=== PATIENT | female | born 1940 | race Caucasian/White ===

== ENCOUNTER 2017-06-07 10:36 | Day surgery (SDC) | payer OTHER, MEDICARE, SELFPAY ==
[2017-06-07] VITALS (7 sets, daily range): BP systolic 101–134; BP diastolic 59–82; PULSE 84–120; RESP 18–20; TEMP 37.1–37.3; O2SAT 90–99
--- NOTE | 2017-06-07 11:20 | HMH.ANESCL ---
[facility] Anesthesia Checklist - Patient Identification Patient Identification: Arm Band - Structural Data Admitted From: Home Planned Operative Procedure/s: colonoscopy Consent for Planned Operative Procedure(s) Verified: Yes Verified Documents: Surgical Consent - NPO Status Verified Time NPO: 00:00 - Airway Assessment C-Spine Mobility Assessed: Yes TMJ Mobility Assessed: Yes Dentition: Good Dentition - Neurological Assessment Level of Consciousness: Awake, Alert - Anesthesia Plan Anesthesia Risk discussed: Yes Anesthesia Plan: Verified ASA Class: III Anesthesia Type: MAC [facility] Anesthesia HX I have reviewed the patient's past medical history: Yes Medical History: Reports:: Aneurysm (THORACIC,ABDOMINAL,RENAL), Hypertension Denies:: Diabetes Mellitus Type 1, Diabetes Mellitus Type 2, Seizures Other Surgeries: No: Pacemaker
--- NOTE | 2017-06-07 11:52 | SUR.OPER ---
ERBE CAUTERY 200, COAG 25. GROUNDED TO RIGHT FLANK. SKIN INTACT UPON REMOVAL.
--- NOTE | 2017-06-07 11:56 | HMH.SCOPE ---
- Procedure: Date: 06/07/17 Patient Date of :: 1940 Procedure Performed:: Colonoscopy with cold snare and hot snare polypectomy Equipment: Olympus 180 variable stiffness pediatric colonoscope Indications:: Mrs. Hinds is a 77-year-old female who is here for initial screening colonoscopy. She does have intermittent functional diarrhea when she goes out side the home to eat. She does have some dyspepsia and reflux with a acid stomach . She reports no abdominal pain, weight loss, change in her bowel habits or rectal bleeding. She reports no family history of colon cancer. Performing Provider:: Charles Oliver MD Referring Provider:: Adeola Morocho M.D. Sedation:: MAC sedation Procedure:: Prior to the procedure, a history and physical exam was performed, and patient's medications and allergies were reviewed. The risks, benefits and alternatives of the sedation and procedure were discussed with the patient. All questions were answered and informed consent was obtained. The patient was brought to the procedure room. Patient identification and proposed procedure were verified by the physician and the nurse. The patient was placed in a left lateral decubitus position and the scope was passed under direct vision. Throughout the procedure, the patient's blood pressure, pulse, and oxygen saturations were monitored continuously. The colonoscopy was accomplished without difficulty. The patient tolerated the procedure well. Findings:: On digital rectal examination there was normal rectal tone. There were no external hemorrhoids. The colonoscope was introduced through the anal canal to the rectum and advanced to the cecum. The ileocecal valve and appendiceal orifice were identified. The scope was advanced a short distance into the ileum which appeared grossly normal. The scope was then withdrawn into the colon. There were 4 colon polyps identified in the ascending ?1, sigmoid ?1 and rectum ?2. These ranged in size from 5-9 mm and were all removed via cold snare polypectomy. There were scattered diverticuli throughout the descending and sigmoid colon (LEFT colon). The rectum itself was normal. Upon retroflexion within the rectum there were grade 1 internal hemorrhoids. Impression: 1. Colonic polyps ?4 2. Extensive left-sided diverticulosis 3. Grade 1 internal hemorrhoids Recommendations:: I will follow up the polyp pathology and recommend repeat colonoscopy again in 3-5 years based upon the polyp histology. I would encourage fiber supplementation on a long-term daily maintenance basis. Complications:: None Estimated blood obtained (mL): 0
--- NOTE | 2017-06-07 12:06 | P.PCN_ITS ---
- Procedure: Date: 06/07/17 Patient Date of :: 1940 Procedure Performed:: Colonoscopy with cold snare and hot snare polypectomy Equipment: Olympus 180 variable stiffness pediatric colonoscope Indications:: Mrs. Hinds is a 77-year-old female who is here for initial screening colonoscopy. She does have intermittent functional diarrhea when she goes out side the home to eat. She does have some dyspepsia and reflux with a acid stomach . She reports no abdominal pain, weight loss, change in her bowel habits or rectal bleeding. She reports no family history of colon cancer. Performing Provider:: Charles Oliver MD Referring Provider:: Adeola Morocho M.D. Sedation:: MAC sedation Procedure:: Prior to the procedure, a history and physical exam was performed, and patient' s medications and allergies were reviewed. The risks, benefits and alternatives of the sedation and procedure were discussed with the patient. All questions were answered and informed consent was obtained. The patient was brought to the procedure room. Patient identification and proposed procedure were verified by the physician and the nurse. The patient was placed in a left lateral decubitus position and the scope was passed under direct vision. Throughout the procedure, the patient's blood pressure, pulse, and oxygen saturations were monitored continuously. The colonoscopy was accomplished without difficulty. The patient tolerated the procedure well. Findings:: On digital rectal examination there was normal rectal tone. There were no external hemorrhoids. The colonoscope was introduced through the anal canal to the rectum and advanced to the cecum. The ileocecal valve and appendiceal orifice were identified. The scope was advanced a short distance into the ileum which appeared grossly normal. The scope was then withdrawn into the colon. There were 4 colon polyps identified in the ascending ?1, sigmoid ?1 and rectum ?2. These ranged in size from 5-9 mm and were all removed via cold snare polypectomy. There were scattered diverticuli throughout the descending and sigmoid colon (LEFT colon). The rectum itself was normal. Upon retroflexion within the rectum there were grade 1 internal hemorrhoids. Impression: 1. Colonic polyps ?4 2. Extensive left-sided diverticulosis 3. Grade 1 internal hemorrhoids Recommendations:: I will follow up the polyp pathology and recommend repeat colonoscopy again in 3 -5 years based upon the polyp histology. I would encourage fiber supplementation on a long-term daily maintenance basis. Complications:: None Estimated blood obtained (mL): 0
== END 2017-06-07 13:00 | disposition home or self-care (01) ==
LOC: OUTP 10:40
PROVIDERS: Family Provider Family Medicine; PCP Family Medicine; Visit Provider Internal Medicine Gastroenterology
PROC: 0DJD8ZZ Inspection of Lower Intestinal Tract, Via Natural or Artificial Opening Endoscopic (ICD-10-PCS; CPT 45378; principal; 2017-06-07 12:00)
DX: Z12.11 Encounter for screening for malignant neoplasm of colon (principal); K59.1 Functional diarrhea; K63.5 Polyp of colon; K57.30 Diverticulosis of large intestine without perforation or abscess without bleeding; K64.0 First degree hemorrhoids
CPT/HCPCS: 45380; 99152

== ENCOUNTER → 2018-07-05 14:46 | Outpatient (CLI) | payer OTHER, SELFPAY ==
--- NOTE | 2018-07-05 14:51 | XR_ITS ---
XR chest 2V HISTORY: ITS.REASON: COPD ACUTE EXACERBATION ORDERING PHYSICIAN: Stephanie Morocho MD PATIENT AGE: 78 years COMPARISON: 11/06/2014 FINDINGS: There is normal heart size. The aortic knob is prominent consistent with ectasia/tortuosity. There is COPD. No lobar consolidation or collapse. No acute bony findings. IMPRESSION: COPD with increasing prominence of the aortic knob. Cannot exclude aneurysmal dilatation. CTA of the chest may be of further value.
== END ==
PROVIDERS: PCP Family Medicine; Visit Provider Family Medicine
DX: J44.1 Chronic obstructive pulmonary disease with (acute) exacerbation (principal)
CPT/HCPCS: 71046

== ENCOUNTER → 2018-09-29 13:10 | Outpatient (CLI) | payer OTHER, MEDICARE, SELFPAY ==
--- NOTE | 2018-09-29 13:16 | CT_ITS ---
CT chest wo con HISTORY: Shortness of air, smoker, thoracic aortic aneurysm ITS.REASON: SOB,H/O NICOTINE DEPENDENCE ORDERING PHYSICIAN: Stephanie Morocho MD PATIENT AGE: 78 years COMPARISON: None Technique: Axial images obtained. Sagittal, and coronal reformatted images are also generated and reviewed. All CT scans at the facility use one or more dose reduction, viz: automated exposure control, ma/kV adjustment per patient size (including targeted exams where dose is matched to indication, i.e. head), or iterative reconstruction technique. FINDINGS: There is focal aneurysmal dilatation of the aortic arch measuring up to 5.5 cm in maximum transverse dimension previously measuring 4.5 cm. This measures 5.8 cm cephalad to caudad previously measuring 4.4 cm. The left subclavian artery origin is located within the proximal aspect of the aneurysm. The aneurysm begins just distal to the left carotid artery. No evidence of mediastinal hematoma. There are coronary artery calcifications. There is some minimal thickening of the pericardium anteriorly at 8 mm suggesting small pericardial effusion. The aneurysm extends for a length of approximately 6.5 cm. The proximal descending thoracic aorta is normal in caliber. There is mild dilatation of the lower thoracic aorta at the aortic hiatus measuring up to 4 cm. This is not significantly changed. Cannot adequately entirely for dissection without IV contrast.. No mediastinal or hilar mass. There is normal heart size. There are centrilobular emphysematous changes with scattered areas of scarring in. Bilateral stable small nodular opacities are present less than 6 mm. There is moderate wedging involving the T12 vertebral body with mild kyphosis. This is not significantly changed. IMPRESSION: 1. Aneurysm of the aortic arch which is increased in size as described above measuring up to 5.5 cm x 5.8 previously 4.5 cm x 4.[address] angiogram of the thoracic aorta further evaluation. Stable dilatation of the lower thoracic aorta. 2. Centrilobular emphysema with scattered areas scarring and stable small bilateral nodular opacities
== END ==
PROVIDERS: PCP Family Medicine; Visit Provider Family Medicine
DX: R06.02 Shortness of breath (principal); Z87.891 Personal history of nicotine dependence
CPT/HCPCS: 71250

== ENCOUNTER → 2018-11-08 12:32 | Outpatient (CLI) | payer OTHER, SELFPAY ==
--- NOTE | 2018-11-08 12:35 | FL_ITS ---
FL barium swallow modified: 11/08/2018 12:35 PM CLINICAL HISTORY: Dysphagia ORDERING PHYSICIAN: Flaco May PATIENT AGE: 78 years Comparison: None TECHNIQUE: Patient administered varying consistencies of barium contrast, while viewed in lateral position under real-time fluoroscopy with cine recording. FLUOROSCOPY TIME: 1 minute and 14 seconds The study was performed in conjunction with speech pathologist. Please see that report & recommendations. FINDINGS: Patient was given varying consistencies of barium. No evidence of penetration or aspiration. There is some delayed swallowing with pudding. IMPRESSION: Unremarkable modified barium swallow Please see speech pathologist report and recommendations.
--- NOTE | 2018-11-08 13:48 | HMH.SLMBS2 ---
Speech & Language Evaluation Speech/Language Mod Barium Swallow Start: 11/08/18 13:43 Freq: once Status: Complete Protocol: Document 11/08/18 13:43 LORRI (Rec: 11/08/18 13:47 LORRI [id number]) [facility] [place] Diet Dietary Recommendations Regular,Thin Liquids Treatment/Strategies Treatment Recommendation Compens. Strategy Educat. Strategy/Precaution Recommend Turn Head Left Mod Barium Swallow Impressions Summary and Impressions Oral Phase Impression No Impairment (WFL) Oral Phase Summary Ms. Hinds was given the following consistencies: thins via straw and open cup, pudding, mechanical soft, regular, mixed, and pill with this wash. No oral phase impairment noted. Pharyngeal Phase Impression Minimal Impairment Pharyngeal Phase Summary Flash penetration with thin liquids via straw and open cup . Compensatory strategy of chin tuck attempted with no improvement noted, improvement noted with head turn to left. Speech/Language MBS Assessment/Goals/Plan Assessment Date of Evaluation: 11/08/18 Evaluation Type Initial Certification Assessment/Problems Dysphagia Does Patient Qualify for Service No Qualify/Failure Comment Diet modifications not needed. Compensatory strategy education completed. Further therapy not warranted at this time. Plan Pt/Guardian verbally ack understanding Yes of dx/prognosis/goals G -code Required Yes G-CODES ST Current Status [id number] ST Current Status Modifier CI-At least 1% but less than 20% impaired, limited or restricted ST Goal Status [id number] ST Goal Status Modifier CI-At least 1% but less than 20% impaired, limited or restricted Mod Barium Swallow Setup Exam Setup Radiologist Abrahan Ortega Level of Consciousness Awake,Alert,Appropriate, Follows Commands Position (degrees) 90 Mod Barium Swallow-Lat View Textures Lateral View Food Presentation Thin Liquid via Cup,Thin Liquid via Straw,Ground Food- Regular,Barium Tablet,Regular Food,Pudding,Mixed Oral Phase Labial Closure No Impairment (WFL)
== END ==
PROVIDERS: PCP Family Medicine; Visit Provider Thoracic Surgery (Cardiothoracic Vascular Surgery)
DX: R13.10 Dysphagia, unspecified (principal)
CPT/HCPCS: 70371; 92611

== ENCOUNTER 2019-08-28 20:27 | Observation (INO) ==
[2019-08-28 20:50] LABS: Microscopic, Urine URINE MICROSCOPIC (MICROSCOPIC)
[2019-08-28 20:51] LABS: Appearance,Urine CLEAR (Clear); Bilirubin,Urine Negative (Negative); Blood, Urine 2+ (Negative); Color,Urine YELLOW (Yellow); Glucose,Urine (UA) Negative (Negative); Ketones,Urine Negative (Negative); Leukocyte Esterase,Urine 2+ (Negative); Protein,Urine Negative (Negative); Urobilinogen,Urine 0.2 EU/dl (0.2)
[2019-08-28 20:56] LABS: Bacteria,Urine Trace /lpf
[2019-08-28 21:14] LABS: Basophils # 0.1 K/mm3 (0-0.2); Basophils % 1.1 % (0.1-2.0); Eosinophils # 0.2 K/mm3 (0.0-0.4); Eosinophils % 3.8 % (0.1-12.0); Hematocrit 39.6 % (37.0-47.0); Hemoglobin 12.1 g/dL (12.2-16.2); Lymphocytes # 1.5 K/mm3 (0.7-4.5); Lymphocytes % 27.3 % (10-50); Mean Corpuscular HGB Conc 30.5 g/dL (31.8-35.4); Mean Corpuscular Volume 94.8 fl (81-99); Mean Platelet Volume 7.7 fl (7.4-10.4); Monocytes # 0.4 K/mm3 (0.1-1.0); Neutrophils # 3.3 K/mm3 (1.8-7.8); Neutrophils % 59.8 % (37.0-80.0); Platelet Count 379 K/mm3 (142-424); Red Blood Count 4.18 M/mm3 (4.20-5.40); White Blood Count 5.6 K/mm3 (4.8-10.8)
[2019-08-28 21:23] LABS: Chloride 100 mmol/L (98-107); Sodium 136 mmol/L (136-145)
[2019-08-28 21:25] LABS: Amylase 138 U/L (30-110); Blood Urea Nitrogen 20 mg/dl (7-17)
[2019-08-28 21:26] LABS: Alanine Aminotransferase 9 U/L (12-78); Albumin Level 4.1 g/dl (3.5-5.0); Albumin/Globulin Ratio 1.5 (1.1-1.8); Alkaline Phosphatase 116 U/L (38-126); Aspartate Amino Transferase 20 U/L (14-36); Calcium 9.6 mg/dl (8.4-10.2); Carbon Dioxide 25 mmol/L (22.0-30.0); Globulin 2.8 g/dL (1.3-3.2); Glucose 88 mg/dl (74-100); Total Protein,Serum 6.9 g/dl (6.3-8.2)
[2019-08-28 21:36] LABS: Bilirubin,Total < 0.1 mg/dl (0.2-1.3)
--- NOTE | 2019-08-28 21:58 | Emergency Department Note ---
ED Disposition Clinical Impression: Renal colic on left side, Renal insufficiency, Overweight (BMI 25.0-29.9) Urinary tract infection Qualifiers: Urinary tract infection type: site unspecified Hematuria presence: without hematuria Qualified Code(s): N39.0 - Urinary tract infection, site not specified AAA (abdominal aortic aneurysm) Qualifiers: Presence of rupture: without rupture Qualified Code(s): I71.4 - Abdominal aortic aneurysm, without rupture Thoracic aortic aneurysm Qualifiers: Presence of rupture: without rupture Qualified Code(s): I71.2 - Thoracic aortic aneurysm, without rupture Disposition: Admitted as Observation Condition on Discharge: Good Instructions: DI for Urinary Tract Infection (UTI), DI for Urinary Tract Infection in Children Referrals: Stephanie Morocho MD [Primary Care Provider] - - Critical Care Critical Care Time: No Attestation: On 08/28/19, the high probability of a clinically significant, sudden or life threatening deterioration of the following system(s) required my full and direct attention, intervention and personal management. The time I documented below is in addition to time spent performing reported procedures but includes the following listed in this critical care notation. Medical Decision Making - Medical Records Medical records reviewed: Yes: I reviewed the patient's medical records. - Balbir Inquiry Pt receiving controlled substance: No Vital Signs: 08/28/19 20:49 08/28/19 21:51 Temperature 98.1 F Temperature Source Oral Pulse Rate [Right Brachial] 110 H 74 Respiratory Rate 19 18 Blood Pressure [Right Arm] 157/90 H 100/80 L Blood Pressure Mean [Right Arm] 112 86 Blood Pressure Source [Right Arm] Automatic Cuff Manual Cuff/ Auscultation 02 Sat by Pulse Oximetry 96 96 Oxygen Delivery Method Room Air Room Air - Lab Data Lab results reviewed: Yes: I reviewed the patient's lab results. Lab Results 08/28/19 20:45: Urine Color Yellow, Urine Appearance Clear, Urine pH 6.0, Ur Specific [place] 1.010, Urine Protein Negative, Urine Glucose (UA) Negative, Urine Ketones Negative, Urine Blood 2+, Urine Nitrate Negative, Urine Bilirubin Negative, Urine Urobilinogen 0.2, Ur Leukocyte Esterase 2+ A, Urine RBC 3-5, Urine WBC 10-20, Ur Squamous Epith Cells 3-5, Urine Bacteria Trace 08/28/19 21:00: WBC 5.6, RBC 4.18 L, Hgb 12.1 L, Hct 39.6, MCV 94.8, MCH 28.9, MCHC 30.5 L, RDW 16.0, Plt Count 379, MPV 7.7, Neut % (Auto) 59.8, Lymph % (Auto) 27.3, [place] % (Auto) 8.0, Eos % (Auto) 3.8, Baso % (Auto) 1.1, Neut # (Auto) 3.3, Lymph # (Auto) 1.5, [place] # (Auto) 0.4, Eos # (Auto) 0.2, Baso # (Auto) 0.1 08/28/19 21:00: Sodium 136, Potassium 5.0, Chloride 100, Carbon Dioxide 25, Anion Gap 16.0 H, BUN 20 H, Creatinine 1.90 H, Estimated Creat Clear 30, Estimated GFR 26 L, Est GFR ( Amer) 31 L, Glucose 88, Calcium 9.6, Total Bilirubin < 0.1 L, AST 20, ALT 9 L, Alkaline Phosphatase 116, Total Protein 6.9, Albumin 4.1, Globulin 2.8, Albumin/Globulin Ratio 1.5, Amylase 138 H, Lipase 184 Result diagrams: 08/28/19 21:00 08/28/19 21:00 Orders (Tests/Meds): ED MEDICATIONS Generic Name Dose Route Start Last Admin Trade Name Freq PRN Reason Stop Dose Admin Sodium Chloride 1,000 mls @ 999 mls/hr 08/28/19 20:45 08/28/19 21:25 Sod Chlor 0.9% 1000ml Bag IV 08/28/19 21:45 999 mls/hr .Q1H1M CLAUS Administration Discontinued Medications Generic Name Dose Route Start Last Admin Trade Name Freq PRN Reason Stop Dose Admin Ketorolac Tromethamine 30 mg 08/28/19 21:24 08/28/19 21:25 Toradol 30mg/Ml Vial IV 08/28/19 21:25 30 mg ONCE ONE Administration ORDERS Category Date Time Status CT abdomen pelvis wo con Stat Cat Scan 08/28/19 20:38 Taken Urine Culture Stat Micro 08/28/19 20:45 Received - CT Data CT Scan: Abdomen, Pelvis Time Received: 22:[address] Reviewed: Yes: I have viewed the radiologist's interpretation Preliminary Findings: Abnormal (see report ) - Physician Consults Physician Consulted: claire Reason -: Admission Additional Consult: [place] Reason -: Pt condition Female Urogenital HPI - General Chief complaint: Urogenital-Female Stated complaint: Possible Bladdler or kidneys possible stones Time Seen by Provider: 08/28/19 21:00 Mode of Arrival: Family Vehicle Source of Information: Patient, Medical Record Limitations: No Limitations Description of Symptoms (Recalled from ER Triage Doc. by RN): pt thought she recentl had a uti and called had her pcp put her on an antibiotic for it. after several days it worsened and now although she denies dysuria she describes a "pulsating" in her clitoris.Assessment reveals no back or abd pain or discomfort, no obvious deformities to vaginal area. urinary frequency present - History of Present Illness HPI Narrative: pt with vaginal pain with urinary sx - she was placed on abx last week but has ongoing sx - no fever or vomiting MD Complaint: "UTI" Onset (ago): day(s) Severity: moderate Associated symptoms: denies other symptoms - Related Data Home Medications Medication Instructions Recorded Confirmed Fluticasone/Salmeterol [Advair 2 each IH BID 06/01/17 08/28/19 500/50mcg diskus] Lovastatin 20 mg PO DAILY 06/01/17 08/28/19 lisinopriL [Lisinopril 2.5mg Tab] 2.5 mg PO DAILY 06/01/17 08/28/19 Esomeprazole Magnesium [Nexium 20 mg PO DAILY 06/04/17 08/28/19 24Hr] allopurinoL [Allopurinol 300mg 300 mg PO DAILY 06/07/17 08/28/19 tablet] Aspirin [Aspir 81] 81 mg PO DAILY 10/18/18 08/28/19 Fluoxetine HCl [Prozac] 20 mg PO DAILY 10/18/18 08/28/19 Sulfamethoxazole/Trimethoprim 1 each PO BID 08/28/19 08/28/19 [Bactrim DS tablet] nitrofurantoin macrocrystaL 1 tab PO BID 08/28/19 08/28/19 [Macrodantin 100mg capsule] Allergies Allergy/AdvReac Type Severity Reaction Status Date / Time No Known Drug Allergies Allergy Unknown Verified 10/18/18 07:07 [facility] History - Hepatitis A Screen Drug use history?: No High risk sexual behaviors?: No History of sexually transmitted infection?: No Currently employed?: No Childcare worker?: No Do you have indoor plumbing?: Yes Do you have electricity?: Yes Attestation statement:: This patient has been screened for Hepatitis A risk factors. I have reviewed the patient's past medical history: Yes Medical History: Reports:: Aneurysm, Hypertension, Lung Disease Denies:: Cancer, Diabetes Mellitus Type 1, Diabetes Mellitus Type 2, Internal Pacemaker, MRSA, Seizures Laterality Cases: Right: Carotid Endarterectomy, Bilateral: Tonsillectomy Other Surgeries: Yes: Cardiac Catheterization (CAROTID ARTERY 2001). No: Pacemaker Amputation: No - Social History Smoking Status: Former smoker Alcohol Intake: never Alcohol Intake Frequency:: holidays/special occasions only Substance Use Type: marijuana (1987; one hit) Occupational Status: retired Housing: house ROS Obtained: Yes All systems reviewed & no additional complaints - Constitutional Constitutional: Denies fever(s) - Eyes Eyes: Denies change in vision - ENT Ears, Nose, Mouth, and Throat: Denies sore throat - Cardiovascular Cardiovascular: Denies chest pain - Respiratory Respiratory: No cough - Gastrointestinal Gastrointestingal: Denies: dysphagia, vomiting - Genitourinary Female Genitourinary: Denies abnormal vaginal bleeding, Denies hematuria, Reports other (ext vag pain) - Musculoskeletal Musculoskeletal: Denies joint swelling - Integumentary/Breasts Skin/Breast: Denies rash - Neurologic Neurologic: Denies focal weakness, Denies seizure-like activity Physical Exam - General General appearance: alert - Head Head exam: normocephalic - Eye Eye exam: Present: PERRL, EOMI - ENT ENT exam: Present: mucous membranes dry - Neck Neck exam: Present: trachea midline - Respiratory Respiratory exam: Absent: respiratory distress - Cardiovascular Cardiovascular exam: Present: regular rate, systolic murmur - Abdominal Exam Abdominal exam: Present: soft Abdominal tenderness: Present: suprapubic, moderate - External exam: Present: normal external exam, other (skin lesions reported as chronic - prob seborrheic keratosis) - Extremities Exam Extremities exam: Present: full ROM - Neurological Exam Neurological exam: Present: alert, CN II-XII intact - Psychiatric Psychiatric exam: Present: anxious - Skin Skin exam: Present: intact
[2019-08-29 06:59] LABS: Anion Gap 10.1 mEq/L (5-15)
[2019-08-29 07:05] LABS: Calcium 8.9 mg/dl (8.4-10.2)
[2019-08-29 07:14] LABS: Basophils % 0.9 % (0.1-2.0); Eosinophils # 0.1 K/mm3 (0.0-0.4); Hematocrit 34.1 % (37.0-47.0); Lymphocytes # 1.2 K/mm3 (0.7-4.5); Lymphocytes % 27.4 % (10-50); Mean Corpuscular HGB Conc 30.4 g/dL (31.8-35.4); Mean Corpuscular Volume 94.2 fl (81-99); Mean Platelet Volume 7.5 fl (7.4-10.4); Monocytes # 0.3 K/mm3 (0.1-1.0); Monocytes % 7.1 % (1.7-9.3); Neutrophils # 2.8 K/mm3 (1.8-7.8); Neutrophils % 61.6 % (37.0-80.0); Platelet Count 313 K/mm3 (142-424); Red Blood Count 3.62 M/mm3 (4.20-5.40); Red Cell Distribution Width 15.7 % (11.5-17.5); White Blood Count 4.5 K/mm3 (4.8-10.8)
[2019-08-29 07:22] LABS: Hemoglobin 10.4 g/dL (12.2-16.2)
--- NOTE | 2019-08-29 08:01 | History & Physical Report ---
*Admission Date: 08/28/19 *Chief complaint: Suprapubic/genital pain *History of present illness: 79-year-old female presented to the emergency department after a near weeklong history of suprapubic pain. Patient admits she originally thought she had a urinary tract infection after she developed some suprapubic pressure and throbbing nearly a week ago. She had contacted the office and was treated empirically for a urinary tract infection. After completing a course of antibiotics and her pain was unchanged she decided to seek treatment at the emergency department. Patient does state that the discomfort she has is somewhat reminiscent of a prior kidney stone. Patient was evaluated in the emergency department and found to have a 3 x 6 mm stone at the left UVJ. Patient was admitted for urologic evaluation. This morning patient reports that she continues to have pressure in the suprapubic region that is radiating down towards her genitals. A Mckinley catheter was inserted overnight as patient felt like she just could not pass urine. Insertion of the Mckinley catheter did produce 350 mL's of dark yellow urine. Patient however denies improvement in pain. She continues to report extreme pressure and throbbing in the suprapubic and vaginal area. She denies fevers or chills. She does not believe she has had any hematuria [facility] History I have reviewed the patient's past medical history: Yes Medical History: Reports:: Aneurysm, Coronary Artery Disease, Hyperlipidemia, Hypertension, Lung Disease Denies:: Cancer, Diabetes Mellitus Type 1, Diabetes Mellitus Type 2, Internal Pacemaker, MRSA, Seizures *Have you ever received a pneumonia vaccine?: Yes *Have you received a flu vaccine this season?: Yes Other Medical History: Reports: Arthritis, Cataracts, Hoarseness (vocal cord removed 2018) Laterality Cases: Right: Carotid Endarterectomy, Bilateral: Cataract, Tonsillectomy Other Surgeries: Yes: Appendectomy, Cardiac Catheterization, Colonoscopy (2018), Hysterectomy-Partial. No: Pacemaker Amputation: No Fractures: No - *Social History Educational Level: Attended College Smoking Status: Former smoker Tobacco Type: cigarettes # Packs/Day (cigarettes): 1 #Yrs smoked (if former smoker): 50 Smoking End Date: 2013 Alcohol Intake: current Alcohol Intake Frequency:: a few times a month Substance Use Type: marijuana (1987; one hit) *Occupational Status:: retired Housing: apartment *Travel in the last 8 weeks: None Family Hx:: Cancer, Coronary Artery Disease, Diabetes, Heart Attack, Hyperlipidemia, Hypertension, Alcoholism Review of Systems - Constitutional Denies body ache(s), Denies chills, Denies fever(s) - ENT Denies abnormal hearing - *Cardiovascular Denies chest pain, Denies chest pain at rest, Denies chest pain with activity - *Respiratory Reports cough, Denies change in phlegm color, Denies chest congestion - *Genitourinary Reports difficulty urinating, Denies blood in urine - *Neurologic Denies localized weakness, Denies seizure-like activity Meds Home Medications Medication Instructions Recorded Confirmed Type Fluticasone/Salmeterol [Advair 2 each IH BID PRN 06/01/17 08/28/19 History 500/50mcg diskus] Lovastatin 20 mg PO DAILY 06/01/17 08/28/19 History lisinopriL [Lisinopril 2.5mg Tab] 2.5 mg PO DAILY 06/01/17 08/28/19 History Esomeprazole Magnesium [Nexium 20 mg PO DAILY 06/04/17 08/28/19 History 24Hr] allopurinoL [Allopurinol 300mg 300 mg PO DAILY 06/07/17 08/28/19 History tablet] Aspirin [Aspir 81] 81 mg PO DIRECTED 10/18/18 08/29/19 History Allergies Allergy/AdvReac Type Severity Reaction Status Date / Time No Known Drug Allergies Allergy Unknown Verified 10/18/18 07:07 Exam Vital signs and Labs for Last 24 Hours: Temp Pulse Resp BP Pulse Ox 97.4 F L 75 18 125/56 L 96 08/29/19 04:00 08/29/19 04:00 08/29/19 04:00 08/29/19 04:00 08/29/19 04:00 Laboratory Results - last 24 hr 08/28/19 20:45: Urine Color Yellow, Urine Appearance Clear, Urine pH 6.0, Ur Specific Stitzer 1.010, Urine Protein Negative, Urine Glucose (UA) Negative, Urine Ketones Negative, Urine Blood 2+, Urine Nitrate Negative, Urine Bilirubin Negative, Urine Urobilinogen 0.2, Ur Leukocyte Esterase 2+ A, Urine RBC 3-5, Urine WBC 10-20, Ur Squamous Epith Cells 3-5, Urine Bacteria Trace 08/28/19 21:00: WBC 5.6, RBC 4.18 L, Hgb 12.1 L, Hct 39.6, MCV 94.8, MCH 28.9, MCHC 30.5 L, RDW 16.0, Plt Count 379, MPV 7.7, Neut % (Auto) 59.8, Lymph % (Auto) 27.3, [place] % (Auto) 8.0, Eos % (Auto) 3.8, Baso % (Auto) 1.1, Neut # (Auto) 3.3, Lymph # (Auto) 1.5, [place] # (Auto) 0.4, Eos # (Auto) 0.2, Baso # (Auto) 0.1 08/28/19 21:00: Sodium 136, Potassium 5.0, Chloride 100, Carbon Dioxide 25, Anion Gap 16.0 H, BUN 20 H, Creatinine 1.90 H, Estimated Creat Clear 30, Estimated GFR 26 L, Est GFR ( Amer) 31 L, Glucose 88, Calcium 9.6, Total Bilirubin < 0.1 L, AST 20, ALT 9 L, Alkaline Phosphatase 116, Total Protein 6.9, Albumin 4.1, Globulin 2.8, Albumin/Globulin Ratio 1.5, Amylase 138 H, Lipase 184 08/28/19 22:21: Lactate 0.9 08/29/19 06:39: WBC 4.5 L, RBC 3.62 L, Hgb 10.4 L D, Hct 34.1 L, MCV 94.2, MCH 28.6, MCHC 30.4 L, RDW 15.7, Plt Count 313, MPV 7.5, Neut % (Auto) 61.6, Lymph % (Auto) 27.4, [place] % (Auto) 7.1, Eos % (Auto) 3.0, Baso % (Auto) 0.9, Neut # (Auto) 2.8, Lymph # (Auto) 1.2, [place] # (Auto) 0.3, Eos # (Auto) 0.1, Baso # (Auto) 0.0 08/29/19 06:39: Sodium 134 L, Potassium 5.1, Chloride 104, Carbon Dioxide 25, Anion Gap 10.1, BUN 19 H, Creatinine 1.90 H, Estimated Creat Clear 30, Estimated GFR 26 L, Est GFR ( Amer) 31 L, Glucose 80, Calcium 8.9 I & O for Last 24 hours: Intake & Output 08/26/19 08/27/19 08/28/19 08/29/19 11:59 11:59 11:59 11:59 Intake Total 1766 / 1766 Output Total 600 / 600 Balance 1166 / 1166 Weight 176 lb 7.998 oz - Constitutional no acute distress - *Routine HEENT Exam Head: Present: normocephalic Eye: Present: EOMI, PERRL ENT: Present: mucous membranes moist - *Routine Neck Exam Present: supple, full ROM. Absent: JVD - *Routine Respiratory Exam Comments: Clear but distant throughout - *Routine Cardiovascular Exam Present: RRR, Normal S1, Normal S2 - *Routine Abdominal Exam Present: soft, normoactive bowel sounds. Absent: tenderness - *Routine Exam External: Present: normal urethra appearance. Absent: erythema, swelling - *Routine Extremities Exam Absent: clubbing, edema - Routine Back/Spine/Pelvis Exam Back/Spine: Absent: CVA tenderness Assessment and Plan (1) Ureterolithiasis Current visit: Yes Status: Acute Category: Medical Code(s): N20.1 - Calculus of ureter 79-year-old female identifies having a left ureterovesical junction stone measuring 3 x 6 mm. KUB has been ordered this morning to assess whether or not stone is still present at the UVJ. If stone is unchanged will contact urology
--- NOTE | 2019-08-29 08:05 | Pharmacy Consult Notes ---
[facility] Pharmacy VTE Monitoring - Patient Demographics Admission date: 08/29/19 Report Date: 08/29/19 Time: 08:05 Allergies/Adverse Reactions: Patient Allergies No Known Drug Allergies Allergy (Unknown, Verified 10/18/18 07:07) Height: 1.63 m Weight: 80.059 kg Patient Problems: Current Active Problems Urinary tract infection (Acute) Renal colic on left side (Acute) AAA (abdominal aortic aneurysm) (Acute) Thoracic aortic aneurysm (Acute) Renal insufficiency (Acute) Overweight (BMI 25.0-29.9) (Acute) - VTE Risk Labs: VTE Related Lab Results Hgb 10.4 g/dL (12.2-16.2) L D 08/29/19 06:39 Hct 34.1 % (37.0-47.0) L 08/29/19 06:39 Plt Count 313 K/mm3 (142-424) 08/29/19 06:39 BUN 19 mg/dl (7-17) H 08/29/19 06:39 Creatinine 1.90 mg/dl (0.52-1.04) H 08/29/19 06:39 Estimated Creat Clear 30 mL/min (50-200) 08/29/19 06:39 Was VTE Risk Assessment Performed: Yes VTE Score: 4 VTE Risk Level: Low Risk Clinical Trial Participant: No - Prophylaxis VTE Prophylaxis Ordered?: Yes Types of VTE Prophylaxis: TEDS Knee High
--- NOTE | 2019-08-30 07:21 | Progress Note ---
Internal Medicine - PN: Subj *Date: 08/30/19 *Time: 07:19 Interval history: Patient states her pain is unchanged. Patient is required routine administration of morphine to control her pain. There is been no indication she has passed her kidney stone. She does admit urine is flowing better. She also reports nausea with an episode of vomiting yesterday evening. Exam Vital signs and Labs for Last 24 Hours: Temp Pulse Resp BP Pulse Ox 97.7 F 85 17 101/66 L 91 L 08/30/19 04:00 08/30/19 04:00 08/29/19 20:00 08/30/19 04:00 08/30/19 04:00 Laboratory Results - last 24 hr 08/29/19 06:39: WBC 4.5 L, RBC 3.62 L, Hgb 10.4 L D, Hct 34.1 L, MCV 94.2, MCH 28.6, MCHC 30.4 L, RDW 15.7, Plt Count 313, MPV 7.5, Neut % (Auto) 61.6, Lymph % (Auto) 27.4, [place] % (Auto) 7.1, Eos % (Auto) 3.0, Baso % (Auto) 0.9, Neut # (Auto) 2.8, Lymph # (Auto) 1.2, [place] # (Auto) 0.3, Eos # (Auto) 0.1, Baso # (Auto) 0.0 I & O for Last 24 hours: Intake & Output 08/27/19 08/28/19 08/29/19 08/30/19 11:59 11:59 11:59 11:59 Intake Total 1766 / 1766 2895 / 2895 Output Total 600 / 600 700 / 700 Balance 1166 / 1166 2195 / 2195 Weight 176 lb 7.998 oz 176 lb 7.998 oz Microbiology Reports for the Last 24 Hours: Microbiology 08/28/19 20:45 Urine,Clean Catch Urine Culture - Preliminary NO GROWTH AFTER 24 HOURS Narrative: Patient appears comfortable. Lungs are distant. Heart has a regular rate and rhythm. Abdomen is soft and nontender. There is no CVA tenderness. Assessment and Plan (1) Ureterolithiasis Current visit: Yes Status: Acute Category: Medical Code(s): N20.1 - Calculus of ureter - Assessment and plan all Dx Assessment and Plan for all problems:: 1. KUB this morning. Likely she will need urologic intervention. Dr. Aguilar is aware. He is anticipating intervening later this morning.
--- NOTE | 2019-08-30 09:04 | Progress Note ---
[facility] Anesthesia Checklist - Patient Identification Patient Identification: Arm Band, Verbal (Name & ) - Structural Data Admitted From: Inpatient Planned Operative Procedure/s: uereteroscopy Consent for Planned Operative Procedure(s) Verified: Yes Verified Documents: History and Physical - NPO Status Verified Time NPO: 00:00 - Additional verifications Patient : No Anesthesia Reactions: No Hx Blood Transfusions: No Blood Transfusion Reaction: No Cephalosporin Allergy: No Previous Colonoscopy: Yes - Cardiovascular Assessment Heart Sounds: S1 & S2 Pulse Strength: Baseline Pulse Rhythm: Regular Peripheral Edema: No - Airway Assessment C-Spine Mobility Assessed: Yes TMJ Mobility Assessed: Yes Dentition: Edentulous - Neurological Assessment Level of Consciousness: Awake, Alert, Appropriate Hx Seizures: No Numbness or tingling in extremities: No - Anesthesia Plan Anesthesia Risk discussed: Yes Anesthesia Plan: Verified ASA Class: III Anesthesia Type: General [facility] History I have reviewed the patient's past medical history: Yes Medical History: Reports:: Aneurysm, Coronary Artery Disease, Hyperlipidemia, Hypertension, Lung Disease Denies:: Cancer, Diabetes Mellitus Type 1, Diabetes Mellitus Type 2, Internal Pacemaker, MRSA, Seizures *Have you ever received a pneumonia vaccine?: Yes *Have you received a flu vaccine this season?: Yes Other Medical History: Reports: Arthritis, Cataracts, Hoarseness (vocal cord removed 2018) Anesthesia experience/problems:: none Laterality Cases: Right: Carotid Endarterectomy, Bilateral: Cataract, Tonsillectomy Other Surgeries: Yes: Appendectomy, Cardiac Catheterization, Colonoscopy (2018), Hysterectomy-Partial. No: Pacemaker Amputation: No Fractures: No - *Social History Educational Level: Attended College Smoking Status: Former smoker Tobacco Type: cigarettes # Packs/Day (cigarettes): 1 #Yrs smoked (if former smoker): 50 Smoking End Date: 2013 Alcohol Intake: current Alcohol Intake Frequency:: a few times a month Substance Use Type: marijuana (1987; one hit) *Occupational Status:: retired Housing: apartment *Travel in the last 8 weeks: None Family Hx:: Cancer, Coronary Artery Disease, Diabetes, Heart Attack, Hyperlipidemia, Hypertension, Alcoholism
--- NOTE | 2019-08-30 10:30 | Progress Note ---
[facility] Anesthesia Record Part I Intake, IV Amount: 800 Estimated blood loss (mL): 0 Urine output (mL): 0 Blood Pressure: 162/76 SaO2: 94 Pulse Rate: 93 Respiratory Rate: 16 Temperature: 97.8 F Patient is:: Drowsy, Stable Stable to PACU at:: 10:20
--- NOTE | 2019-08-30 10:58 | Consult Report ---
*Admission Date: 08/29/19 *Reason for consult:: Left ureteral stone *History of present illness: Patient is a 79-year-old white female with a 1 week history of lower abdominal and vaginal discomfort. She came to emergency room and a CT scan showed a 6 mm distal left ureteral stone without evidence of hydronephrosis. She has been afebrile and her white count is normal. She was admitted for pain issues. She gives a distant history of kidney stones 20 years ago. She denies any flank pain, hematuria or nausea. Her CT scan and medical record were reviewed preoperatively this morning. [facility] History Medical History: Reports:: Aneurysm, Coronary Artery Disease, Hyperlipidemia, Hypertension, Lung Disease Denies:: Cancer, Diabetes Mellitus Type 1, Diabetes Mellitus Type 2, Internal Pacemaker, MRSA, Seizures *Have you ever received a pneumonia vaccine?: Yes *Have you received a flu vaccine this season?: Yes Other Medical History: Reports: Arthritis, Cataracts, Hoarseness (vocal cord rem chance 2018). Denies: Blood Transfusion Reaction Anesthesia experience/problems:: none Laterality Cases: Right: Carotid Endarterectomy, Bilateral: Cataract, Tonsillectomy Other Surgeries: Yes: Appendectomy, Cardiac Catheterization, Colonoscopy (2018), Hysterectomy-Partial. No: Pacemaker Amputation: No Fractures: No - *Social History Educational Level: Attended College Smoking Status: Former smoker Tobacco Type: cigarettes # Packs/Day (cigarettes): 1 #Yrs smoked (if former smoker): 50 Smoking End Date: 2013 Alcohol Intake: current Alcohol Intake Frequency:: a few times a month Substance Use Type: marijuana (1987; one hit) *Occupational Status:: retired Housing: apartment *Travel in the last 8 weeks: None Family Hx:: Cancer, Coronary Artery Disease, Diabetes, Heart Attack, Hyperlipidemia, Hypertension, Alcoholism Review of Systems - Review of Systems Review of systems:: pertinent systems reviewed and negative unless documented below - *Neurologic Denies abnormal hearing, Denies localized weakness, Denies seizure-like activity Meds Home Medications Medication Instructions Recorded Confirmed Type Fluticasone/Salmeterol [Advair 2 each IH BID PRN 06/01/17 08/29/19 History 500/50mcg diskus] Lovastatin 20 mg PO DAILY 06/01/17 08/29/19 History Esomeprazole Magnesium [Nexium 20 mg PO DAILY 06/04/17 08/29/19 History 24Hr] allopurinoL [Allopurinol 300mg 300 mg PO DAILY 06/07/17 08/29/19 History tablet] Aspirin [Aspir 81] 81 mg PO DIRECTED 10/18/18 08/29/19 History lisinopriL [Lisinopril 5mg 5 mg PO DAILY 08/29/19 08/29/19 History Tablet] Allergies Allergy/AdvReac Type Severity Reaction Status Date / Time No Known Drug Allergies Allergy Unknown Verified 10/18/18 07:07 Exam Vital signs and Labs for Last 24 Hours: Temp Pulse Resp BP Pulse Ox 97.8 F 93 H 16 162/76 H 97 08/30/19 10:30 08/30/19 10:30 08/30/19 10:30 08/30/19 10:30 08/30/19 08:00 I & O for Last 24 hours: Intake & Output 08/27/19 08/28/19 08/29/19 08/30/19 23:59 23:59 23:59 23:59 Intake Total 1050 / 1290 2589 / 2589 1822 / 1822 Output Total 250 / 250 550 / 550 500 / 500 Balance 800 / 1040 2039 / 2039 1322 / 1322 Weight 80.059 kg 80.059 kg 80.059 kg Microbiology Reports for the Last 24 Hours: Microbiology 08/28/19 20:45 Urine,Clean Catch Urine Culture - Preliminary NO GROWTH AFTER 24 HOURS Narrative: Well-nourished white female in no apparent distress Pupils equal round reactive to light Head is normocephalic Neck is symmetric Normal respiratory effort Abdomen soft nondistended Alert and oriented x3 Internal Medicine - CN: Reslt - Labs CBC & Chem 7: 08/29/19 06:39 08/29/19 06:39 Assessment and Plan (1) Ureterolithiasis Current visit: Yes Status: Acute Category: Medical Code(s): N20.1 - Calculus of ureter - Assessment and plan all Dx Assessment and Plan for all problems:: 79-year-old white female with a distal left ureteral stone. She is afebrile but very creatinine is elevated 1.9. We discussed treatment options including ureteroscopy as she has failed a 1 week trial of passage. She wishes to proceed with surgical intervention and we discussed the procedure, complications and possible necessity for a temporary ureteral stent. She wishes to proceed. Her family is not present today due to the coronavirus precautions and I will inform them of our a progress after the operation.
--- NOTE | 2019-08-30 11:04 | Operative Note ---
Date of procedure: 08/30/19 Pre-op Diagnosis:: Left distal ureteral stone Post-op Diagnosis:: Same Procedure performed:: Left ureteroscopy, laser lithotripsy, stone extraction and left stent placement Surgeon:: Fili Aguilar MD [employer] REPAIRER:: Silver Denny Anesthesia: GETA Estimated blood loss (mL): 0 Clinical Note:: 79-year-old white female with 1 week history of suprapubic and vaginal pain. CT scan shows a 6 mm distal left ureteral stone without hydronephrosis. Operative findings:: Distal left ureteral stone was present. The left ureteral orifice was swollen the trigone was elevated. Operative note:: Patient taken to the operating room after informed consent was obtained. Placed on the operating table in the supine position and general anesthesia administered. She was on preoperative Rocephin. LIZZY hose and sequential compression devices were utilized. She was placed into the dorsal lithotomy position and prepped and draped in the standard surgical fashion. A 21 James passed into the urethra and into the bladder without difficulty. The bladder was examined in a systematic fashion. No mucosal abnormalities were noted. Right ureter in its normal anatomic position and of normal shape. Left ureteral orifice was swollen and the trigone underlying the ureteral orifice was elevated consistent with a stone that has been unable to pass. A 5 Faroese ureteral catheter passed into the scope and to the left ureteral orifice. A guidewire was then passed through the ureteral catheter we were able to place the wire into the swollen ureteral orifice and I then advancing the ureteral catheter were able to pass the wire by the stone. Under fluoroscopy the wire was passed up into the left renal pelvis. We then removed the ureteral catheter and the cystoscope. Our semirigid ureteroscope was then passed into the urethra and into the bladder. Ureteral orifice was a bit narrow but we were able to manipulate the ureteroscope into the ureter and the stone was just inside the ureteral orifice. A 220 nm laser fiber was passed through the scope and the stone broken up into small pieces. We then used a 1.9 Faroese nitinol stone basket to remove all the stone fragments. Due to the swelling of the ureteral orifice and trigone a 4.8 x 24 Faroese stent was passed over the guidewire and the guidewire removed. Fluoroscopy revealed a good curl of the stent proximally and distally. The string was left on for later removal. Patient tolerated the procedure well there were no complications. She was discharged to the recovery room and may be discharged home later today if she is feeling well. I spoke with Dr. Arellano and informed him of the procedure and the successful nature. We discussed returning to the office in 1 week for stent removal and keeping her on antibiotics as well as precautions to prevent this stent being removed prior to that. Condition: stable Disposition: PACU Specimens:: None Complications:: None
--- NOTE | 2019-08-30 15:46 | Discharge Summary ---
General - General Admission date:: 08/28/19 Discharge date: 08/30/19 HPI HPI: 79-year-old female presented to the emergency department after a near weeklong history of suprapubic pain. Patient admits she originally thought she had a urinary tract infection after she developed some suprapubic pressure and throbbing nearly a week ago. She had contacted the office and was treated empirically for a urinary tract infection. After completing a course of antibiotics and her pain was unchanged she decided to seek treatment at the emergency department. Patient does state that the discomfort she has is somewhat reminiscent of a prior kidney stone. Patient was evaluated in the emergency department and found to have a 3 x 6 mm stone at the left UVJ. Patient was admitted for urologic evaluation. This morning patient reports that she continues to have pressure in the suprapubic region that is radiating down towards her genitals. A Mckinley catheter was inserted overnight as patient felt like she just could not pass urine. Insertion of the Mckinley catheter did produce 350 mL's of dark yellow urine. Patient however denies improvement in pain. She continues to report extreme pressure and throbbing in the suprapubic and vaginal area. She denies fevers or chills. She does not believe she has had any hematuria Hospital Course Hospital Course: Patient was admitted and placed on Rocephin for presumptive UTI. Patient was hydrated and given an opportunity to pass the stone. When patient was unable to pass the stone urology intervened. On August 29 Dr. Aguilar extracted stone and left a stent in place at the left ureterovesical junction. Patient was discharged home later in the day and will follow up with Dr. Aguilar for stent removal next week. Objective Vital signs: Temp Pulse Resp BP Pulse Ox 97.5 F L 78 18 134/64 97 08/30/19 12:15 08/30/19 12:15 08/30/19 12:15 08/30/19 12:15 08/30/19 12:15 Results Labs on day of discharge: Preliminary micro results at discharge 08/28/19 20:45 Urine Culture - Preliminary Urine,Clean Catch NO GROWTH AFTER 24 HOURS DS: Diagnosis - Discharge Diagnosis (1) Ureterolithiasis Status: Acute Discharge Plan - Patient Discharge Instructions ACTIVITY: Continue current activity DIET: continue same diet Patient Instructions: Kidney Stones -- Adult, Aortic Aneurysm, Acute Renal Failure, DI for Pelvic Pain - Follow up Plan Follow up with: Clemente Arellano MD [Staff Physician] - 09/06/19 10:30 am Fili Aguilar MD [Staff Physician] - 09/05/19 11:00 am Disposition: Home, Self-Usp Medications: Home Medications Medication Instructions Recorded Confirmed Type Fluticasone/Salmeterol [Advair 2 each IH BID PRN 06/01/17 08/29/19 History 500/50mcg diskus] Lovastatin 20 mg PO DAILY 06/01/17 08/29/19 History Esomeprazole Magnesium [Nexium 20 mg PO DAILY 06/04/17 08/29/19 History 24Hr] allopurinoL [Allopurinol 300mg 300 mg PO DAILY 06/07/17 08/29/19 History tablet] Aspirin [Aspir 81] 81 mg PO DIRECTED 10/18/18 08/29/19 History lisinopriL [Lisinopril 5mg 5 mg PO DAILY 08/29/19 08/29/19 History Tablet] Sulfamethoxazole/Trimethoprim 1 each PO BID #10 tab 08/30/19 Rx [Bactrim DS tablet] Prescriptions/Medication Reconciliation: New Sulfamethoxazole/Trimethoprim [Bactrim DS tablet] 1 each PO BID #10 tab Continued Lovastatin 20 mg PO DAILY Fluticasone/Salmeterol [Advair 500/50mcg diskus] 2 each IH BID PRN PRN Reason: COPD allopurinoL [Allopurinol 300mg tablet] 300 mg PO DAILY Aspirin [Aspir 81] 81 mg PO DIRECTED Esomeprazole Magnesium [Nexium 24Hr] 20 mg PO DAILY lisinopriL [Lisinopril 5mg Tablet] 5 mg PO DAILY - Problem Reconciliation Problems Reviewed?: Yes
--- NOTE | 2019-08-30 17:37 | Progress Note ---
[facility] Anesthesia Record Part II Discharge Time: 10:50 Destination: Medical Surgical Department PACU nurse assessment reviewed?: Yes Patient Condition:: Good Anesthesia Complications:: None Swallowing reflex intact?: Yes Cyanosis?: No Blood Pressure: 115/66 Pulse Rate: 86 Temperature: 97.8 F Mental Status: Alert & Oriented Pain level:: 0 Nausea and/or vomitting:: None Intake, IV Amount: 0
== END 2019-08-30 15:52 | disposition home or self-care (01) ==
LOC: ER 20:27 → 2ND 22:17 → INTOOBSV 22:50 → 2ND 22:52
PROVIDERS: ADMIT Internal Medicine Adolescent Medicine; ATTEND Family Medicine
CPT/HCPCS: 36415; 74000; 74018; 74176; 74450; 80048; 80053; 81001; 82150; 83605; 83690; 85025; 87040; 87086; 96365; 96375; 99284; C1769; C2617; G0378; J2405

== ENCOUNTER → 2021-03-14 12:05 | Outpatient (CLI) | payer OTHER, SELFPAY ==
--- NOTE | 2021-03-14 12:15 | XR_ITS ---
PROCEDURE: XR HAND LT MIN 3V CLINICAL INDICATION: BL hand pain COMPARISON: No exams were available for comparison FINDINGS: No fracture or dislocation. No lytic or blastic change. There is normal mineralization. Osteoarthritic changes are present at the scapho trapezium joint and 1st carpal metacarpal junction as well as the DIP joints greatest at the 2nd digit. No bony destructive process. Other findings:None. IMPRESSION: Osteoarthritis Dictated by: Abrahan Ortega MD 03/14/2021 13:03 Abrahan Ortega MD in [place] 03/14/2021 13:03
--- NOTE | 2021-03-14 12:15 | XR_ITS ---
PROCEDURE: XR HAND RT MIN 3V CLINICAL INDICATION: BL hand pain COMPARISON: No exams were available for comparison FINDINGS: No acute fracture or dislocation. Osteoarthritic changes are present at the scapho trapezium and 1st metacarpal-carpal joint as well as the 1st interphalangeal joint and the DIP joints greatest at the 2nd digit. No bony erosive process. Other findings:None. IMPRESSION: Osteoarthritis Dictated by: Abrahan Ortega MD 03/14/2021 13:11 Abrahan Ortega MD in [place] 03/14/2021 13:11
== END ==
PROVIDERS: PCP Family Medicine; Visit Provider Orthopaedic Surgery
DX: M79.642 Pain in left hand (principal); M79.641 Pain in right hand
CPT/HCPCS: 73130

== ENCOUNTER → 2021-05-26 10:27 | Outpatient (CLI) | payer OTHER, SELFPAY | PROVIDERS: PCP Family Medicine; Visit Provider Nurse Practitioner | DX: Z20.822 Contact with and (suspected) exposure to COVID-19 (principal) | CPT/HCPCS: C9803; U0003; U0005 ==

== ENCOUNTER → 2022-03-13 14:14 | Outpatient (CLI) | payer OTHER, SELFPAY ==
--- NOTE | 2022-03-13 14:14 | CT_ITS ---
FINAL REPORT TECHNIQUE: Thin section axial CT images with coronal and sagittal reformats were performed through the neck. This study was performed with techniques to keep radiation doses as low as reasonably achievable (ALARA). Individualized dose reduction techniques using automated exposure control or adjustment of mA and/or kV according to the patient's size were employed. CLINICAL HISTORY: Right lymph node swelling. BB on right swollen lymph node. COMPARISON: September 2018 FINDINGS: The nasopharynx, hypopharynx and oropharynx are unremarkable. Salivary glands are normal. Larynx is unremarkable. Thyroid gland is unremarkable. A skin marker was placed along the lateral right neck at the area of a palpable abnormality. Beneath the marker in the posterior aspect of the parotid gland is a 20 x 18 x 14 mm mass. There is opacification of multiple ethmoid air cells. There is partially imaged aneurysmal dilatation of the AA aortic arch at 6.6 cm that previously measured 5.5 cm. IMPRESSION: 2 cm right neck mass at the area of interest. Differentials would include pleomorphic adenoma or mucoepidermoid carcinoma. 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 Recommend CTA for further evaluation. Reviewed, Interpreted and Dictated by Phoenix Muro III, MD Transcribed by Froilan Presley Authenticated and [facility]
== END ==
PROVIDERS: PCP Family Medicine; Visit Provider Otolaryngology
DX: R13.10 Dysphagia, unspecified (principal); J38.01 Paralysis of vocal cords and larynx, unilateral
CPT/HCPCS: 70490

== ENCOUNTER 2022-04-02 11:19 | Emergency (ER) | payer OTHER, SELFPAY ==
[2022-04-02] VITALS (19 sets, daily range): BP systolic 76–130; BP diastolic 32–70; PULSE 75–98; RESP 17–23; TEMP 36.7; O2SAT 81–96; BMI 29.5
--- NOTE | 2022-04-02 11:30 | PC.NURSE ---
PATIENT SENT TO ER PER Silvio MADDEN APRN FOR FURTHER EVALUATION. REPORT GIVEN TO Alysia ROSE RN BY Silvio MADDEN APRN
--- NOTE | 2022-04-02 11:42 | EXP.UTC ---
Discharge Plan Disposition Patient Disposition: Admitted as Observation Condition: Fair Prescriptions Prescriptions: No Action lovastatin 40 mg tablet 40 mg PO DAILY allopurinol 300 MG tablet 300 mg PO DAILY aspirin 81 MG tablet,delayed release (DR/EC) 81 mg PO DAILY lisinopril 5 MG tablet 5 mg PO DAILY Trelegy Ellipta 200-62.5-25 mcg blister with device 1 inh INHALATION DAILY Referrals Follow up/Referrals: Stephanie Morocho MD [Primary Care Provider] - See instructions Activity Restrictions/Add. Instructions Additional Instructions/Restrictions: Rest and drink plenty of fluids. Follow-up with primary care provider as soon as possible, call for appointment. Return to the emergency department if symptoms worsen. Clinical Impressions Clinical Impression: COVID-19 virus infection, Acute hypotension Instructions Patient Instructions: DI for Hypotension, DI for COVID-19 (Suspected or Confirmed ) Discharge ED Provider: Dallas Stone [facility] General Chief complaint: Shortness of Breath/Dyspnea Stated complaint: sob, dizzy, weak, no appetite Time Seen by Provider: 04/02/22 12:44 History of Present Illness Provider Complaint: Patient states that she has felt well in several days not eating or drinking well States that she has been dizzy and felt SOA and congested States that today she is feeling sick in her right side of abdomen into her back and feels like she is going to pass out when she tries to stand up Family states this not her normal States that she just feels bad denies pain states that she just feels weak and wants to lay down Related Data Home Medications Medication Instructions Recorded Confirmed allopurinol 300 mg tablet 300 mg PO DAILY gout 06/07/17 04/02/22 aspirin 81 mg tablet,delayed 81 mg PO DAILY Heart disease 10/18/18 04/02/22 release lisinopril 5 mg tablet 5 mg PO DAILY Hypertension 08/29/19 04/02/22 lovastatin 40 mg tablet 40 mg PO DAILY Cholesterol 03/03/22 04/02/22 fluticasone fur. 200 mcg-umeclid 1 inh inhalation DAILY COPD 04/02/22 04/02/22 62.5 mcg-vilant 25 mcg inhalat.powder (Trelegy Ellipta) Allergies Allergy/AdvReac Type Severity Reaction Status Date / Time No Known Drug Allergies Allergy Unknown Verified 03/03/22 15:53 [facility] Medical History (Updated 04/02/22 @ 15:23 by Dallas Stone MD) Emphysema lung GERD (gastroesophageal reflux disease) Headache Hypertension Unilateral vocal cord paralysis Social History Smoking Status: Former smoker pack-years: 50 alcohol intake: current substance use type: marijuana current occupational status: retired Travel in the last 8 weeks: None housing: apartment number of children: 3 caffeine: Yes ROS Obtained: Yes All systems reviewed & no additional complaints except as documented and Yes Systems reviewed as appropriate & no additional complaints except as documented Constitutional Constitutional: Reports system reviewed and no additional complaints, except as documented, Reports as per HPI, Reports fatigue, Reports poor appetite, Reports lethargy and Reports weakness ENT Ears, Nose, Mouth, and Throat: Reports system reviewed and no additional complaints, except as documented, Reports as per HPI and Reports dizziness (when she tries to stand) Cardiovascular Cardiovascular: Reports system reviewed and no additional complaints, except as documented, Reports as per HPI and Denies chest pain Respiratory Respiratory: Reports system reviewed and no additional complaints, except as documented, Reports as per HPI and Reports shortness of breath Gastrointestinal Gastrointestingal: Reports system reviewed and no additional complaints, except as documented, as per HPI and other (reports feels sick in right side of abdomen into back denies pain ) Neurologic Neurologic: Reports dizziness (when she tries to stand) and Reports weakness Endocrine Endocrine: Reports fatigue P
--- NOTE | 2022-04-02 11:58 | XR_ITS ---
FINAL REPORT CLINICAL HISTORY: SOA COMPARISON: 10/18/2018 FINDINGS: A single portable view of the chest was obtained. The heart size is normal. There is a 7.7 cm aneurysm at the level of the aortic arch, stable. The mediastinum is within normal limits. There is mild bibasilar atelectasis or scarring. The bony thorax is intact. IMPRESSION: Mild bibasilar atelectasis or scarring. 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 Reviewed, Interpreted and Dictated by Phoenix Muro III, MD Transcribed by Nafisa Sloan Authenticated and [facility]
[2022-04-02 12:05] LABS: Influenza A, PCR Not Detected (NotDetected); Influenza B, PCR Not Detected (NotDetected)
[2022-04-02 12:08] LABS: Basophils # 0.1 K/mm3 (0-0.2); Basophils % 1.3 % (0.1-2.0); Chloride 99 mmol/L (98-107); Eosinophils % 0.3 % (0.1-12.0); Hematocrit 42.3 % (37.0-47.0); Hemoglobin 13.3 g/dL (12.2-16.2); Lymphocytes # 0.9 K/mm3 (0.7-4.5); Lymphocytes % 18.8 % (10-50); Mean Corpuscular HGB Conc 31.3 g/dL (31.8-35.4); Mean Corpuscular Hemoglobin 30.7 pg (27.0-31.2); Mean Platelet Volume 8.5 fl (7.4-10.4); Monocytes # 0.4 K/mm3 (0.1-1.0); Monocytes % 9.1 % (1.7-9.3); Neutrophils # 3.4 K/mm3 (1.8-7.8); Neutrophils % 70.5 % (37.0-80.0); Platelet Count 294 K/mm3 (142-424); Red Blood Count 4.32 M/mm3 (4.20-5.40); Red Cell Distribution Width 15.5 % (11.5-17.5); Sodium 137 mmol/L (136-145); White Blood Count 4.9 K/mm3 (4.8-10.8)
[2022-04-02 12:09] LABS: Potassium 4.2 mmoL/L (3.5-5.1)
[2022-04-02 12:11] LABS: Alanine Aminotransferase 17 U/L (12-78); Alkaline Phosphatase 85 U/L (38-126); Anion Gap 12.2 mEq/L (5-15); Aspartate Amino Transferase 27 U/L (14-36); Blood Urea Nitrogen 20 mg/dl (7-17); Carbon Dioxide 30 mmol/L (22.0-30.0); Creatinine Clearance Estimated 47 mL/min (50-200); Estimated Glomerular Filt Rate 48 ml/min (>60); GFR (African American) 58 ML/MIN (>60)
[2022-04-02 12:12] LABS: Albumin Level 3.8 g/dl (3.5-5.0); Albumin/Globulin Ratio 1.4 (1.1-1.8); Bilirubin,Total < 0.1 mg/dl (0.2-1.3); Calcium 9.6 mg/dl (8.4-10.2); Globulin 2.8 g/dL (1.3-3.2); Glucose 101 mg/dl (74-100); Total Protein,Serum 6.6 g/dl (6.3-8.2)
[2022-04-02 12:28] LABS: Coronavirus 19, PCR Detected (NotDetected)
--- NOTE | 2022-04-02 12:28 | PC.NURSE ---
rounded on pt in the room and asked if they had any needs, pt stated that they had no needs at this time
--- NOTE | 2022-04-02 12:44 | HMH.EDGENADL ---
Discharge Plan Disposition Patient Disposition: Admitted as Observation Condition: Fair Prescriptions Prescriptions: No Action lovastatin 40 mg tablet 40 mg PO DAILY allopurinol 300 MG tablet 300 mg PO DAILY aspirin 81 MG tablet,delayed release (DR/EC) 81 mg PO DAILY lisinopril 5 MG tablet 5 mg PO DAILY Shankar Norris 200-62.5-25 mcg blister with device 1 inh INHALATION DAILY Referrals Follow up/Referrals: Stephanie Morocho MD [Primary Care Provider] - See instructions Activity Restrictions/Add. Instructions Additional Instructions/Restrictions: Rest and drink plenty of fluids. Follow-up with primary care provider as soon as possible, call for appointment. Return to the emergency department if symptoms worsen. Clinical Impressions Clinical Impression: COVID-19 virus infection, Acute hypotension Instructions Patient Instructions: DI for Hypotension, DI for COVID-19 (Suspected or Confirmed ) Discharge ED Provider: Dallas Stone General Adult HPI General Chief complaint: Shortness of Breath/Dyspnea Stated complaint: sob, dizzy, weak, no appetite Time Seen by Provider: 04/02/22 12:44 Mode of Arrival: Wheelchair Source of Information: Patient Limitations: No Limitations Description of Symptoms (Recalled from ER Triage Doc. by RN): Pateint reports she has not felt well for two weeks. Patient c/o SOA, no appetie, nausea and generalized weakness. History of Present Illness HPI narrative: The patient is sent from the urgent treatment center. She states she has been sick for 2 weeks. She has had nonproductive cough, shortness of breath, generalized weakness, nausea, poor appetite. She had fever and diarrhea at the onset of the illness, but not since. Her main complaint now is that she did not sleep all night, up every hour. Feeling very weak and lightheaded and presyncopal when she stands and walks. She was found to be hypotensive in the urgent treatment center with a systolic blood pressure of 85 and was sent to the emergency department. Related Data Home Medications Medication Instructions Recorded Confirmed allopurinol 300 mg tablet 300 mg PO DAILY gout 06/07/17 04/02/22 aspirin 81 mg tablet,delayed 81 mg PO DAILY Heart disease 10/18/18 04/02/22 release lisinopril 5 mg tablet 5 mg PO DAILY Hypertension 08/29/19 04/02/22 lovastatin 40 mg tablet 40 mg PO DAILY Cholesterol 03/03/22 04/02/22 fluticasone fur. 200 mcg-umeclid 1 inh inhalation DAILY COPD 04/02/22 04/02/22 62.5 mcg-vilant 25 mcg inhalat.powder (Trelegy Ellipta) Allergies Allergy/AdvReac Type Severity Reaction Status Date / Time No Known Drug Allergies Allergy Unknown Verified 03/03/22 15:53 [facility] Medical History (Updated 04/02/22 @ 15:23 by Dallas Stone MD) Emphysema lung GERD (gastroesophageal reflux disease) Headache Hypertension Unilateral vocal cord paralysis Social History Smoking Status: Former smoker pack-years: 50 alcohol intake: current substance use type: marijuana current occupational status: retired Travel in the last 8 weeks: None housing: apartment number of children: 3 caffeine: Yes ROS Obtained: Yes Systems reviewed as appropriate & no additional complaints except as documented Constitutional Constitutional: Reports difficulty sleeping, Reports fatigue, Reports fever(s), Denies headache(s), Reports poor appetite and Reports weakness ENT Ears, Nose, Mouth, and Throat: Denies headache(s), Denies nasal discharge and Denies sore throat Cardiovascular Cardiovascular: Denies chest pain Respiratory Respiratory: Reports shortness of breath and Reports cough Gastrointestinal Gastrointestingal: Reports diarrhea and nausea; Denies abdominal pain, constipation or vomiting Genitourinary Female Genitourinary: Denies difficulty voiding, Denies dysuria and Denies flank pain Musculoskeletal Musculoskeletal: Denies numbness Neurologic Neurologic: Denies he
[2022-04-02 13:00] LABS: Lactic Acid 0.9 mmol/L (0.7-2.1)
--- NOTE | 2022-04-02 13:00 | ECG_ITS ---
APPROVED REPORT Exam: Resting ECG HR:75 bpm ECG Measurements Heart Rate 75 AXES SD 157 P 93 QRSd 88 QRS 56 QT 360 T 88 QTc 388 Conclusion SINUS RHYTHM WITH MARKED SINUS ARRHYTHMIA BORDERLINE ECG UNCONFIRMED REPORT Electronically signed by : Clemente Jones MD 04/03/2022 13:28:51
[2022-04-02 13:38] LABS: Troponin I < 0.01 ng/ml (0.00-0.034)
--- NOTE | 2022-04-02 14:44 | PC.NURSE ---
at the bedside
--- NOTE | 2022-04-02 15:38 | HMH.PHAINT1 ---
Pharmacy Intervention Comments: MEDICATION RECONCILIATION COMPLETED ON PATIENT USING EXTERNAL FILL HISTORY FROM PHARMACY. -NICHOLAS MUIR, WAYNED
== END 2022-04-02 17:35 | disposition admitted as inpatient to this hospital (09) ==
LOC: UTC 11:23 → ER 11:42
PROVIDERS: Emergency Provider Emergency Medicine; PCP Family Medicine
DX: U07.1 COVID-19 (principal); I95.9 Hypotension, unspecified; Z79.82 Long term (current) use of aspirin; Z79.899 Other long term (current) drug therapy; M10.9 Gout, unspecified; I10 Essential (primary) hypertension; J44.9 Chronic obstructive pulmonary disease, unspecified; K21.9 Gastro-esophageal reflux disease without esophagitis; J38.01 Paralysis of vocal cords and larynx, unilateral; F17.200 Nicotine dependence, unspecified, uncomplicated
CPT/HCPCS: 71045; 80053; 83605; 84484; 85025; 87040; 93005; 96365; 96366; 99291; C9803; U0003; U0005

== ENCOUNTER → 2022-04-17 07:32 | Outpatient (CLI) | payer OTHER, SELFPAY ==
--- NOTE | 2022-04-17 07:33 | US_ITS ---
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 At the area of interest is a 2.3 x 1.3 lobular hypoechoic mass. This mass has increased vascularity and is worrisome for neoplasm. IMPRESSION: 2.3 cm mass at the area of interest worrisome for neoplasm. Reviewed, Interpreted and Dictated by Pete Stringer MD Transcribed by Desirae Cleveland PA-C Authenticated and . [facility]
--- NOTE | 2022-04-17 07:33 | US_ITS ---
FINAL REPORT CLINICAL HISTORY: .fna rt parotid for rt parotid mass/nodule FINDINGS: ULTRASOUND GUIDED RIGHT PAROTID MASS BIOPSY HISTORY: Right parotid nodule/mass. TECHNIQUE: Informed consent was obtained from the patient. A timeout procedure was performed prior to beginning. Limited sonographic evaluation of right parotid gland was performed to localize lesion of interest. The neck was prepped in a routine sterile fashion and locally anesthetized with 1% lidocaine. FNA was performed with 25-gauge needle under direct sonographic visualization. 4 passes were made. Cytology is pending. Procedure was well tolerated. CONCLUSION: Technically successful right parotid nodule fine needle aspiration. Reviewed, Interpreted and Dictated by Pete Stringer MD Transcribed by Desirae Cleveland PA-C Authenticated and [facility]
== END ==
PROVIDERS: PCP Family Medicine; Visit Provider Otolaryngology
DX: D49.0 Neoplasm of unspecified behavior of digestive system (principal)
CPT/HCPCS: 10005; 76536

== ENCOUNTER → 2022-10-02 08:47 | Outpatient (CLI) | payer OTHER, SELFPAY ==
[2022-10-02 09:07] LABS: Basophils # 0.1 K/mm3 (0-0.2); Basophils % 0.9 % (0.1-2.0); Eosinophils # 0.2 K/mm3 (0.0-0.4); Hematocrit 44.1 % (37.0-47.0); Hemoglobin 13.2 g/dL (12.2-16.2); Lymphocytes # 1.7 K/mm3 (0.7-4.5); Lymphocytes % 26.9 % (10-50); Mean Corpuscular Hemoglobin 29.4 pg (27.0-31.2); Mean Corpuscular Volume 98.1 fl (81-99); Mean Platelet Volume 7.3 fl (7.4-10.4); Monocytes # 0.4 K/mm3 (0.1-1.0); Monocytes % 5.7 % (1.7-9.3); Neutrophils # 4.1 K/mm3 (1.8-7.8); Neutrophils % 63.6 % (37.0-80.0); Platelet Count 316 K/mm3 (142-424); Red Blood Count 4.49 M/mm3 (4.20-5.40); Red Cell Distribution Width 14.7 % (11.5-17.5); White Blood Count 6.5 K/mm3 (4.8-10.8)
[2022-10-02 09:42] LABS: Chloride 99 mmol/L (98-107); Sodium 143 mmol/L (136-145)
[2022-10-02 09:44] LABS: Blood Urea Nitrogen 24 mg/dl (7-17); Estimated Glomerular Filt Rate 53 ml/min (>60); GFR (African American) 64 ML/MIN (>60)
[2022-10-02 09:45] LABS: Alanine Aminotransferase 17 U/L (12-78); Albumin Level 3.9 g/dl (3.5-5.0); Albumin/Globulin Ratio 1.5 (1.1-1.8); Alkaline Phosphatase 100 U/L (38-126); Aspartate Amino Transferase 23 U/L (14-36); Bilirubin,Total 0.3 mg/dl (0.2-1.3); Calcium 9.8 mg/dl (8.4-10.2); Carbon Dioxide 33 mmol/L (22.0-30.0); Cholesterol 160 mg/dl (140-200); Globulin 2.6 g/dL (1.3-3.2); Glucose 98 mg/dl (74-100); Total Protein,Serum 6.5 g/dl (6.3-8.2); Triglycerides 136 mg/dl (30-150); VLDL Cholesterol 27 mg/dL (0-40)
[2022-10-02 09:46] LABS: Chol/HDL Ratio 3.6 (1-3.5); HDL Cholesterol 45 mg/dl (40-60)
[2022-10-02 09:57] LABS: Direct LDL Cholesterol 89.53 mg/dL (100-129)
[2022-10-02 10:03] LABS: T4 (Thyroxine) 10.4 ug/dl (5.53-11.0)
[2022-10-02 10:16] LABS: Thyroid Stimulating Hormone 1.27 uIU/mL (0.465-4.68)
== END ==
PROVIDERS: PCP Family Medicine; Visit Provider Family Medicine
DX: I10 Essential (primary) hypertension (principal); E78.5 Hyperlipidemia, unspecified; I71.20 Thoracic aortic aneurysm, without rupture, unspecified; I71.40 Abdominal aortic aneurysm, without rupture, unspecified; J44.9 Chronic obstructive pulmonary disease, unspecified
CPT/HCPCS: 36415; 80053; 80061; 84436; 84443; 85025

== ENCOUNTER → 2022-10-30 14:16 | Outpatient (CLI) | payer OTHER, SELFPAY ==
--- NOTE | 2022-10-30 14:16 | US_ITS ---
FINAL REPORT CLINICAL HISTORY: rt parotid mass COMPARISON: CT of the salivary glands dated February 2022 FINDINGS: No prior ultrasound films are available for comparison purposes. The patient has a mass in the right parotid gland that was identified on a CT examination of March 2022. Ultrasound examination of the right parotid gland reveals a 3 x 1.6 cm hypoechoic slightly lobular right parotid mass inferiorly, which is slightly larger than noted on the previous CT examination although this may be related to differences in technique. The remainder of the submandibular and left parotid glands are unremarkable in appearance. IMPRESSION: 3 x 1.6 cm hypoechoic slightly lobular right parotid mass inferiorly, slightly larger than noted on the prior CT examination of March 2022, although this difference may be related to differences in technique. Tissue sampling is highly recommended if not already performed. Reviewed, Interpreted and Dictated by Pete Stringer MD Transcribed by Beckie Grande Authenticated and [facility]
== END ==
PROVIDERS: PCP Family Medicine; Visit Provider Otolaryngology
DX: R22.0 Localized swelling, mass and lump, head (principal); D49.0 Neoplasm of unspecified behavior of digestive system
CPT/HCPCS: 76536

== ENCOUNTER → 2022-12-14 15:56 | Outpatient (CLI) | payer OTHER, SELFPAY ==
[2022-12-16 22:07] LABS: Neisseria gonorrhoeae, NAA Negative (Negative)
== END ==
PROVIDERS: PCP Family Medicine; Visit Provider Family Medicine
DX: N89.8 Other specified noninflammatory disorders of vagina (principal)
CPT/HCPCS: 87491; 87591

== ENCOUNTER 2023-08-12 19:16 | Emergency (ER) | payer OTHER, SELFPAY ==
[2023-08-12 19:26] VITALS: BMI 25.0
--- NOTE | 2023-08-12 19:33 | ED_ITS ---
Discharge Plan Disposition Patient Disposition: Date/Time: 08/12/23 19:33 Clinical Impressions Clinical Impression: Cardiac arrest, Dyspnea Discharge ED Provider: Colin Ashley General Adult HPI General Stated complaint: arrest Time Seen by Provider: 08/12/23 19:32 History of Present Illness HPI narrative: Patient is an 83-year-old female who presented in cardiac arrest. She was brought in by her son after she was having some chest discomfort and shortness of breath. 5 minutes prior to arrival she lost consciousness and did not have a pulse. She was pulled from the parking lot placed on a stretcher chest compressions were initiated immediately and she was brought into room 3 in the emergency department. No further history able to be obtained secondary to patient's clinical status. Related Data Home Medications Medication Instructions Recorded Confirmed esomeprazole magnesium 20 mg 20 mg PO DAILY 09/30/22 04/01/23 capsule,delayed release (Nexium) Previous Rx's Medication Instructions Recorded fluticasone fur. 200 mcg-umeclid 1 inh inhalation DAILY COPD 90 01/18/23 62.5 mcg-vilant 25 mcg days #60 ea inhalat.powder (Trelegy Ellipta) tobramycin 0.3 %-dexamethasone 0.1 1 drp ophthalmic (eye) ONCE 30 01/29/23 % eye drops,suspension (TobraDex) days #2.5 mL lovastatin 40 mg tablet 40 mg PO DAILY Cholesterol 90 days 05/20/23 #90 tabs lisinopril 5 mg tablet 5 mg PO DAILY Hypertension 90 days 06/22/23 #90 tabs Allergies Allergy/AdvReac Type Severity Reaction Status Date / Time No Known Drug Allergies Allergy Unknown Verified 04/01/23 15:24 [facility] Disclaimer: The information contained in this section may have been updated after the patient was seen, as this information can be updated by other users. Medical History Acute hypotension COVID-19 virus infection Dysphagia Dysphonia Emphysema lung GERD (gastroesophageal reflux disease) Headache Hoarseness, persistent Hypertension Mass of right parotid gland Parotid gland enlargement Parotid neoplasm Thyroid Nodule Unilateral vocal cord paralysis Urinary tract infection Surgical History H/O endarterectomy History of appendectomy History of partial hysterectomy History of tonsillectomy Hx of cataract surgery Family History Brother Cancer Hypertension Sister Cancer Coronary artery disease Diabetes Hypertension Father Coronary artery disease Hypertension Social History Smoking Status: Former smoker tobacco type: cigarettes packs per day: 1 alcohol intake: current substance use type: denies use current occupational status: retired Travel in the last 8 weeks: Inside the [place] housing: apartment number of children: 3 caffeine: Yes ROS Obtained: Yes All systems reviewed & no additional complaints except as documented Physical Exam General General appearance: other (Unconscious chest compressions being performed) Respiratory Respiratory exam: Present other (Patient apneic actively vomiting into her airway) Cardiovascular Cardiovascular exam: Present other (Pulseless) Neurological Exam Neurological exam: Present other (GCS of 3) Medical Decision Making Balbir Inquiry Pt receiving controlled substance: No Medical Decision Narrative: Patient was brought into room 3 in our emergency department after being found cardiac arrest by minutes prior to arrival with a history of shortness of breath. Son was able to provide more history that she had known thoracic aneurysms. Multiple rounds of ACLS were performed patient was also given epinephrine calcium bicarb bedside echo was done during pulse checks which showed a moderate size pericardial effusion with what appeared to be clot I suspect that patient either had a known pericardial effusion that overcame filling pressures or that she had a catastrophic left ventricular rupture in the setting of an FL or possible aortic dissection into her pericardium. Pericardiocentesis was attempted as a heroic measure but was unsuccessful. I spoke with our top stitcher we agree this is a catastrophic event with no further intervention that could be done. 21 minutes of total ACLS was performed. Patient was also intubated shortly prior after being put into room 3 she was bagged immediately but she was actively vomiting had significant aspiration and hypoxia associated with this. The tube was visualized going through the cords but she certainly had severe aspiration hypoxemia after her aspiration event. Her sons were brought into the room and goals of care were discussed and they asked that we stop resuscitative efforts. Time of was called at 1933. Procedures Intubation Mallampati Score:: Class III Time out performed: No sedative: none Laryngoscope: fiber optic video scope (MAC 4) ET Tube Size: 7.5 ET Tube Uncuffed: Yes Tube Secured Depth (cm): 22 Tube Placement Confirmation: visualized tube passing through cords, equal breath sounds bilaterally and confirmation by capnometry Patient Tolerated Procedure: well Miscellaneous Procedure Procedure Performed: Pericardiocentesis Indication pericardial effusion in the setting of cardiac arrest Pericardiocentesis kit was opened patient was prepped and her subxiphoid region needle was placed in superior lateral angulation towards the left shoulder aspiration was performed while needle was advanced toward the left shoulder there is no successful withdrawal of blood. Critical Care Critical Care Time Critical Care Time: Yes Attestation: On 08/12/23, the high probability of a clinically significant, sudden or life threatening deterioration of the following system(s) required my full and direct attention, intervention and personal management. The time I documented below is in addition to time spent performing reported procedures but includes the following listed in this critical care notation. Total Time Total Critical Care Time: 35
--- NOTE | 2023-08-12 19:37 | PC.NURSE ---
@ 1910- Call from Registration staff that Family is out here thinks their family member just . Multiple staff members ran to vehicle with a stretcher. This RN and Dr. Ashley in trauma room 3 to prep for Code.
--- NOTE | 2023-08-12 19:54 | EXP.DEATH.NO ---
Pronouncement Note Date and Time of Date of : 08/12/23 Time of : 19:33 PCOD Preliminary cause of : Cardiac arrest Summary Additional details: See note. Patient came in cardiac arrest after shortness of breath. Has a known history of a thoracic aneurysm was found to have a pericardial effusion on limited bedside echo during resuscitation. Pericardiocentesis was attempted without any improvement in her state. ACLS was performed for 20 minutes resuscitative efforts were deemed futile beyond this most likely the patient had a ruptured aneurysm or dissection into the pericardium. I discussed the case with Dr. Zamora and middle of the case family was brought in to the bedside we were unable to resuscitate patient and time of was called at 1933 after maximal efforts were performed in the emergency department. Family was at the bedside when the time of was called. Additional Data Confirmation of : no pulse and no respirations Family: at bedside Attending/PCP notified?: No Was code activated?: Yes Autopsy should be considered if:: Unknown or unanticipated medical complications Cause is not known with certainty on clinical grounds Would allay concerns of the public/family regarding Unexplained/unexpected apparently natural and not subject to a forensic medical jurisdiction DOA Within 24 hours of admission Sustained or apparently sustained injury while in the hospital Result of high risk, infectious and contagious disease Obstetric and pediatric arising from environmental or occupational hazard Unexplained/unexpected from dental, medical, or surgical diagnostic procedures and/or therapies Would disclose a known or suspected illness which also may have a bearing on survivors or recipients of transplanted organs Autopsy requested?: No Does not meet criteria knitted cloth examiner notified?: No Organ bank notified?: No Advance directives: No
--- NOTE | 2023-08-12 19:55 | PC.NURSE ---
On this date at the beginning of shift, registration approached the nurses station stating there was a man outside stating that he believed his mother on the way into the ER. After getting the attention of other nurses I grabbed a pair of size M gloves and exited through the door to the lobby of the ER. After exiting through the sliding doors I found the son standing in the opening of the passenger door frantically stating I believe she on the way up here and you have to do something, thats my mom. Other staff members then went back into the ER and retrieved a stretcher, I then lifted the patient from the vehicle and placed her on the stretcher and Juan R SunMckay then climbed onto the bed and began chest compressions after confirming the patient was pulseless, apneic and non responsive to painful stimuli. Patient was then wheeled into 3 where the rest of the ER staff took over patient care.
--- NOTE | 2023-08-12 20:06 | PC.NURSE ---
Addendum entered by Madeline Bashir RN 08/12/23 20:47: 2020 pt cleared by pump machine operator. staff at bedside to clean pt Original Note: approx 1900 family ran into ED registration and stated my mom just in the car per principal clerk typist. ED staff Diana Aguilar, Tiarra Hunter, Martin La, and Christiano Bashir went to family vehicle. Pt was noted to have agonal respirations. Pt was immediately moved to stretcher. Pulse check revealed no pulse, pt not breathing. Chest compressions initiated immediately. 1911- pt brought into ED room 3. CPR in progress. MD Ashley and KAITLIN Gutierrez at bedside. Other staff waiting at bedside- Diane Lassiter, S Heather, Colin Brice, H Shun, T Luis, RT, Diane Hagen. IO established in RLE. 191- 1mg epi given via IO. bolus of NS started via IO. 191- 1mg epi and 50meq bicarb given via IO, Pt intubated by MD Ashley. ET tube 23cm at lip. Color change noted. Secured in place by RT. PIV 18G established in RAC. 1 gram calcium chloride given via PIV. 1916- pulse check. Pt has no pulse. PEA on zolle. Chest compressions resumed. O2 sat 84%-bagged w BVM per ETT. 1918- 1mg epi given via PIV Son at bedside at this time. MD Ashley perform US of heart and prep for pericardiocentesis. 1920- 50 meq bicarb given via IO. O2 sat 85% with BVM 100% o2. 1922- 1mg epi given per PIV. 1922- pulse check. no pulse. PEA on zolle. chest compression resumed. 1924. 1mg epi given via IO. MD Ashley on phone with Dr Zamora for consult at this time. 1924- LR pressure bagged via PIV 1925- pulse check. no pulse. Asystole on zolle. chest compression resumed. 2 family members at bedside at this time. o2 sat 63%- BVM 100%O2. 1927- pulse check. no pulse. asystole on monitor. stop CPR at this time per MD Ashley. TOD - 1932. 1954- Humberto called. Ok to release- spoked with Summer Horton. approx 2009- gavino Redman at bedside. 2029- Pierre Leach to facility. 2045 Pierre Leach at bedside.
--- NOTE | 2023-08-12 20:50 | PC.NURSE ---
pt leaving facility at this time .
[2023-08-12] MEDS: 0.9 % SODIUM CHLORIDE 1000ML 1,000 ML 999 ML IV (22:22)
[2023-08-12] MEDS: CALCIUM CHLORIDE 1GM/10ML SYRINGE (CRASH CART) 1 GM IVP (22:25)
[2023-08-12] MEDS: SODIUM BICARB 8.4% 50ML SYRINGE (CRASH CART) 50 MEQ IV ×2 (22:27)
[2023-08-12] MEDS: LACTATED RINGERS 1000ML 1,000 ML 999 ML IV (22:28)
[2023-08-12] MEDS: EPINEPHrine 0.1 MG/ML 10ML SYRINGE (CRASH CART) 1 MG IV ×2 (22:28→22:29)
[2023-08-12 22:41] VITALS: BP 0/0; PULSE 0; RESP 0; TEMP -17.7; TEMP 0; O2SAT 0
== END 2023-08-12 20:50 | disposition expired ==
PROVIDERS: Emergency Provider Student in an Organized Health Care Education/Training Program; PCP Family Medicine
DX: I46.9 Cardiac arrest, cause unspecified (principal); R07.9 Chest pain, unspecified; R06.02 Shortness of breath; J43.9 Emphysema, unspecified; Z87.891 Personal history of nicotine dependence
CPT/HCPCS: 31500; 33016; 92950; 33010; 99291; C1725